=== PATIENT | male | born 1940 | race Hispanic/Latino ===

== ENCOUNTER 2020-02-25 07:52 | Outpatient (CLI) | payer OTHER | END 2020-02-25 23:21 | disposition home or self-care (01) | LOC: RESP 07:52 | DX: I48.91 Unspecified atrial fibrillation (principal) ==

== ENCOUNTER 2020-04-03 07:45 | Outpatient (CLI) | payer OTHER ==
[~2020-04-03] VITALS: Ht 172.7 cm; Wt 78.5 kg
== END 2020-04-03 20:01 | disposition home or self-care (01) ==
LOC: NM 07:45
PROVIDERS: ATTEND Internal Medicine Cardiovascular Disease
DX: R07.89 Other chest pain (principal)
CPT/HCPCS: A9500; J2785

== ENCOUNTER 2020-05-08 08:35 | Outpatient (CLI) | payer OTHER ==
[2020-05-08 09:45] LABS: POTASSIUM 4.6 mmol/L (3.6-5.2)
== END 2020-05-08 21:12 | disposition home or self-care (01) ==
LOC: LAB 08:35
PROVIDERS: ATTEND Physician Assistant
DX: Z79.899 Other long term (current) drug therapy (principal)
CPT/HCPCS: 80053; 84443

== ENCOUNTER 2022-06-11 09:10 | Outpatient (CLI) | payer OTHER ==
[2022-06-11 09:56] LABS: POTASSIUM 3.6 mmol/L (3.6-5.2)
== END 2022-06-11 21:19 | disposition home or self-care (01) ==
LOC: LABW 09:10
PROVIDERS: ATTEND Internal Medicine Cardiovascular Disease
DX: Z79.899 Other long term (current) drug therapy (principal); R06.09 Other forms of dyspnea
CPT/HCPCS: 36415; 80048; 83880

== ENCOUNTER 2022-06-30 08:38 | Outpatient (CLI) | payer OTHER | END 2022-06-30 19:24 | disposition home or self-care (01) | LOC: RESP 08:38 | PROVIDERS: ATTEND Internal Medicine Cardiovascular Disease | DX: I10 Essential (primary) hypertension (principal); R07.89 Other chest pain ==

== ENCOUNTER 2022-07-05 07:54 | Outpatient (CLI) | payer OTHER ==
[~2022-07-05] VITALS: Ht 170.2 cm; Wt 83.5 kg
== END 2022-07-05 19:00 | disposition home or self-care (01) ==
LOC: NM 07:54
PROVIDERS: ATTEND Internal Medicine Cardiovascular Disease
DX: I10 Essential (primary) hypertension (principal); R07.89 Other chest pain
CPT/HCPCS: A9500; J2785